=== PATIENT | male | born 1965 | race Caucasian/White ===

== ENCOUNTER 2020-01-17 08:37 | Outpatient (CLI) | payer OTHER, SELFPAY ==
--- NOTE | 2020-01-17 08:45 | CT_ITS ---
WS: [id number] LDCT LUNG CANCER SCREENING HISTORY: NICOTINE Dependence, cigarettes TECHNIQUE: Axial imaging performed from the apices to 1 cm below the costophrenic angles. Coronal and sagittal reformats are submitted with axial MIP series. All CT scans at [facility] use at least one of these dose optimization techniques: automated exposure control; mA and/or kV adjustment per patient size (includes targeted exams where dose is matched to clinical indication); or iterativ e reconstruction. DLP: 63.17 mGy.cm DIvol: 1.53 mGy COMPARISON: None available. Diagnostic quality: Satisfactory Lung Nodules: Pleural thickening with an area of groundglass attenuation in the anterior inferior RIG HT middle lobe measures 4.2 x 2.0 cm. Benign granuloma at the anterior LEFT upper lobe. Lungs: Biapical pleural thickening with fibrosis, greatest on the RIGHT. Marked pulmonary hyperinflat ion with bullous and bleb disease. Linear scarring and fibrosis noted at the lung bases. Heart: Normal size. No pericardial effusion. Other findings: There are several mediastinal and hilar lymph nodes. Lymph nodes are difficult to radha ntify without IV contrast on this limited evaluation. Largest lymph nodes measure 8 mm which are not significantly enlarged. Mild atherosclerosis aorta CT/CT lung screening [id number] IMPRESSION: LUNG-RADS: 3-Probably Benign FOLLOW UP: 6 Month LDCT Reevaluate groundglass attenuation RIGHT middle lobe 6 months. OTHER FINDINGS (S MODIFIER): None.
== END 2020-01-17 08:38 | disposition home or self-care (01) ==
LOC: RAD 08:42
PROVIDERS: PCP Family Medicine; Visit Provider Family Medicine
DX: Z12.2 Encounter for screening for malignant neoplasm of respiratory organs (principal); F17.210 Nicotine dependence, cigarettes, uncomplicated
CPT/HCPCS: G0297

== ENCOUNTER 2020-12-21 09:16 | Outpatient (CLI) | payer OTHER, SELFPAY ==
--- NOTE | 2020-12-21 09:26 | CT_ITS ---
WS: [id number] LDCT LUNG CANCER SCREENING HISTORY: NICOTINE DEPENDENCE TECHNIQUE: Axial imaging performed from the apices to 1 cm below the costophrenic angles. Coronal and sagittal reformats are submitted with axial MIP series. All CT scans at [facility] use at least one of these dose optimization techniques: automated exposure control; mA and/or kV adjustment per patient size (includes targeted exams where dose is matched to clinical indication); or iterativ e reconstruction. DLP: 65.67 mGy.cm DIvol: 1.58 mGy COMPARISON: 01/17/2020 Diagnostic quality: Satisfactory Lung Nodules: Groundglass attenuation in the RIGHT middle lobe is unchanged in size measuring 4.2 x 1 .6 cm. Biapical pleural thickening and scarring is also stable. Additional cystic changes in the medi al LEFT upper lung are stable. No new pulmonary nodules. Lungs: Emphysematous changes with bullous and bleb disease. Heart: Normal size. Other findings: 8 mm AP window lymph nodes are stable. CT/CT lung screening [id number] IMPRESSION: LUNG-RADS: 2-Benign Appearance or Behavior FOLLOW UP: 12 Month: Continue annual screening with LDCT OTHER FINDINGS (S MODIFIER): None.
== END 2020-12-21 09:17 | disposition home or self-care (01) ==
PROVIDERS: PCP Family Medicine; Visit Provider Family Medicine
DX: Z12.2 Encounter for screening for malignant neoplasm of respiratory organs (principal); F17.210 Nicotine dependence, cigarettes, uncomplicated
CPT/HCPCS: 71271

== ENCOUNTER 2022-02-07 16:39 | Outpatient (CLI) | payer OTHER, SELFPAY ==
--- NOTE | 2022-02-07 | CT_ITS ---
WS: [id number] LDCT LUNG CANCER SCREENING TECHNIQUE: Noncontrast CT of the chest with coronal and sagittal reformatted images. CLINICAL INFORMATION: TOBACCO USE COMPARISON: December 21, 2020 DLP: 93.57 mGy.cm DIvol: Mean CTDIvol: 1.60 (mGy) All CT scans at [facility] use at least one of these dose optimization techniques: automat ed exposure control; mA and/or kV adjustment per patient size (includes targeted exams where dose is matched to clinical indication); or iterative reconstruction. FINDINGS:4 mm noncalcified nodule RIGHT middle lobe is unchanged. Calcified granuloma LEFT upper lobe . Tiny noncalcified nodule LEFT upper lobe unchanged measuring 3 mm. Moderate chronic emphysematous changes. No acute pulmonary infiltrates. No focal pneumonia or pleural fluid. Patchy hazy groundglass infiltrate in the RIGHT middle lobe unchanged from previous. Aortic c alcification. No mediastinal or hilar lymphadenopathy. Adrenal glands are normal. Mild thoracic kypho sis. A few Schmorl's nodes in the thoracic spine. No axillary lymphadenopathy. Fibrosis in the lung [place]. CT/CT lung screening [id number] IMPRESSION: LUNG-RADS: 2-Benign Appearance or Behavior FOLLOW UP: 12 Month: Continue annual screening with LDCT
== END 2022-02-07 16:40 | disposition home or self-care (01) ==
PROVIDERS: PCP Family Medicine; Visit Provider Family Medicine
DX: Z12.2 Encounter for screening for malignant neoplasm of respiratory organs (principal); F17.210 Nicotine dependence, cigarettes, uncomplicated
CPT/HCPCS: 71271